=== PATIENT | male | born 1975 | race African-American/Black ===

== ENCOUNTER 2018-02-04 04:27 | Emergency (ER) | payer OTHER ==
[2018-02-04 04:44] VITALS: BP 140/97; PULSE 88; TEMP 98.1; BMI 43.5
--- NOTE | 2018-02-04 04:54 | PDOC ---
Attending Attestation - HPI HPI: 02/04/18 06:24 The patient is a 43 year old male with no significant past medical history who presents to the emergency department for evaluation of bilateral pedal edema. The patient reports a 2 week history of intermittent bilateral pedal edema. Pt reports mild left calf pain. Denies chest pain, shortness of breath, headache, sick contact, and recent illness. Allergies: Penicillins Social History: Current some day smoker. No reported alcohol or drug use. PCP: Dr. Ed Logan ([phone]) <Srinivas Madrigal - Last Filed: 02/04/18 06:44> - Resident Resident Name: Camron Huitron - ED Attending Attestation I have performed the following: I have examined & evaluated the patient, The case was reviewed & discussed with the resident, I agree w/resident's findings & plan - Physicial Exam PE: 02/04/18 20:06 Agree with resident exam. Pt has bilateral swelling of the ankles. No pitting edema noted in the lower legs otherwise, however bilateral lower legs are red and warm. Pt is afebrile. He has no tachycardia and no complaints of leg pain. - Medical Decision Making 02/04/18 20:07 Pt was signed out to the day team. His D dimes is elevated in the hundreds. Labs otherwise normal. He is awaiting sono duplex doppler of the right lower leg to r/o DVT. 02/04/18 20:09 <Jodie Husain - Last Filed: 02/04/18 20:09> Attestations - Attestations Documentation prepared by Srinivas Madrigal, acting as manager medical for Jodie Husain MD. <Srinivas Madrigal - Last Filed: 02/04/18 06:44>
--- NOTE | 2018-02-04 05:04 | PDOC ---
History of Present Illness - General Chief Complaint: Edema Stated Complaint: ANKLE SWELLING Time Seen by Provider: 02/04/18 04:45 History Source: Patient Exam Limitations: No Limitations - History of Present Illness Initial Comments: 02/04/18 05:02 43m with no pmh presents to the ED with bilateral pedal edema for the past 2 weeks, on/off. Minor calf pain on the left leg. No history of heart disease or diabetes. Recent cold for the past week. 02/04/18 05:32 Past History - Past Medical History Allergies/Adverse Reactions: Allergies Allergy/AdvReac Type Severity Reaction Status Date / Time Penicillins Allergy Severe Verified 02/04/18 04:40 Home Medications: Ambulatory Orders NK [No Known Home Medication] 02/04/18 - Suicide/Smoking/Psychosocial Hx Smoking History: Current some day smoker Have you smoked in the past 12 months: No Information on smoking cessation initiated: No Hx Alcohol Use: No Drug/Substance Use Hx: No Review of Systems - Review of Systems Able to Perform ROS?: Yes Is the patient limited Serbian proficient: No Constitutional: No: Symptoms Reported HEENTM: No: Symptoms Reported Respiratory: No: Symptoms reported Cardiac (ROS): No: Symptoms Reported ABD/GI: No: Symptoms Reported : No: Symptoms Reported Musculoskeletal: No: Symptoms Reported Integumentary: No: Symptoms Reported Neurological: No: Symptoms reported All Other Systems: Reviewed and Negative *Physical Exam - Vital Signs Last Vital Signs Temp Pulse Resp BP Pulse Ox 98.1 F 88 18 140/97 98 02/04/18 04:32 02/04/18 04:32 02/04/18 04:32 02/04/18 04:32 02/04/18 04:32 - Physical Exam General Appearance: Yes: Appropriately Dressed, Obese. No: Apparent Distress HEENT: positive: EOMI, [place], Normal ENT Inspection Respiratory/Chest: positive: Lungs Clear, Normal Breath Sounds. negative: Chest Tender, Respiratory Distress Cardiovascular: positive: Regular Rhythm, Regular Rate, S1, S2 Gastrointestinal/Abdominal: positive: Normal Bowel Sounds, Soft, Protuberent. negative: Tender Musculoskeletal: positive: Normal Inspection. negative: CVA Tenderness Extremity: positive: Normal Capillary Refill, Normal Inspection, Normal Range of Motion, Pedal Edema (1+) Integumentary: positive: Normal Color, Dry, Warm Neurologic: positive: Fully Oriented, Alert, Normal Mood/Affect, Normal Response , Motor Strength 12/03 ED Treatment Course - LABORATORY CBC & Chemistry Diagram: 02/04/18 05:40 02/04/18 05:40 Medical Decision Making - Medical Decision Making 02/04/18 05:32 Bedside U/S no sign of heart failure, no DVT's appreciated. basic labs ordered, UA, bnp 02/04/18 05:34 02/04/18 07:09 All labs wnl Pending UA and D-dimer 02/04/18 07:11 Come back to the ER for any new, worsening or concerning symptom. *DC/Admit/Observation/Transfer Diagnosis at time of Disposition: Pedal edema - Referrals Referrals: Ed Logan MD [Primary Care Provider] - - Patient Instructions Printed Discharge Instructions: DI for Peripheral Edema -- Bilateral Additional Instructions: Follow up with your PCP appointment tomargaret Logan. Come back to the ER for any new, worsening or concerning symptom. - Post Discharge Activity
[2018-02-04 05:49] LABS: BASO % 0.8 % (0-2.0); EOS % 3.1 % (0-4.5); HEMATOCRIT 40.9 % (35.4-49); HEMOGLOBIN 13.4 GM/dL (11.7-16.9); LYMPH % 22.1 % (8-40); MCH 24.2 pg (25.7-33.7); MCHC 32.7 g/dl (32.0-35.9); MEAN CELL VOLUME 74.1 fl (80-96); MEAN PLT VOLUME 8.5 fl (7.5-11.1); MONO % 8.6 % (3.8-10.2); NEUT % 65.4 % (42.8-82.8); PLATELET COUNT 238 K/MM3 (134-434); RBC 5.52 M/mm3 (4.00-5.60); RDW 17.1 % (11.9-15.9); WHITE BLOOD COUNT 10.8 K/mm3 (4.0-10.0)
[2018-02-04 06:13] LABS: ALBUMIN 3.4 g/dl (3.4-5.0); ANION GAP 6 (8-16); BILIRUBIN,TOTAL 0.2 mg/dL (0.2-1.0); BLOOD UREA NITROGEN 16 mg/dL (7-18); CALCIUM 8.7 mg/dL (8.5-10.1); CHLORIDE 108 mmol/L (98-107); CO2 28 mmol/L (21-32); GLUCOSE,RANDOM 90 mg/dL (74-106); POTASSIUM 4.1 mmol/L (3.5-5.1); SGOT/AST 29 U/L (15-37); SGPT/ALT 46 U/L (12-78); SODIUM 142 mmol/L (136-145); TOT PROT 7.2 g/dl (6.4-8.2)
[2018-02-04 06:15] LABS: ALK PHOS 79 U/L (45-117); N-TERMINAL BNP < 5.00 pg/ml (5-125)
[2018-02-04 06:47] LABS: URINE APPEARANCE CLEAR; URINE BILIRUBIN NEGATIVE (<2.0 mg/dL); URINE COLOR STRAW; URINE GLUCOSE (UA) NEGATIVE (NEGATIVE); URINE KETONE NEGATIVE (NEGATIVE); URINE LEUK ESTERASE NEGATIVE (NEGATIVE); URINE NITRITE NEGATIVE (NEGATIVE); URINE PROTEIN NEGATIVE (NEGATIVE); URINE UROBILINOGEN NEGATIVE mg/dL (0.2-1.0)
--- NOTE | 2018-02-04 07:11 | PDOC ---
*Physical Exam - Vital Signs Last Vital Signs Temp Pulse Resp BP Pulse Ox 98.1 F 88 18 140/97 98 02/04/18 04:32 02/04/18 04:32 02/04/18 04:32 02/04/18 04:32 02/04/18 04:32 - Physical Exam Vascular Pulses: Dorsalis-Pedis (R): 2+, Doralis-Pedis (L): 2+ Extremity: positive: Normal Capillary Refill, Normal Inspection. negative: Tender, Coldness, Calf Tenderness, Erythema ED Treatment Course - LABORATORY CBC & Chemistry Diagram: 02/04/18 05:40 02/04/18 05:40 - ADDITIONAL ORDERS Additional order review: Laboratory Results 02/04/18 05:40 Sodium 142 Potassium 4.1 Chloride 108 H Carbon Dioxide 28 Anion Gap 6 L BUN 16 Creatinine 1.0 Creat Clearance w eGFR > 60 Random Glucose 90 Calcium 8.7 Total Bilirubin 0.2 AST 29 ALT 46 Alkaline Phosphatase 79 B-Natriuretic Peptide < 5.00 L Total Protein 7.2 Albumin 3.4 02/04/18 05:40 RBC 5.52 MCV 74.1 L MCHC 32.7 RDW 17.1 H MPV 8.5 Neutrophils % 65.4 Lymphocytes % 22.1 Monocytes % 8.6 Eosinophils % 3.1 Basophils % 0.8 Medical Decision Making - Medical Decision Making 02/04/18 07:12 Patient signed out by Dr. Huitron (Resident) and Dr. Husain (Attending) 43 year old male with no reported PMH presents w/2 week h/o B/L pedal edema and R calf pain. Bedside U/S equivocal for DVT. PE shows 2+ B/L DP pulses, non-tender calf 02/04/18 07:25 D-Dimer 765 Will send for Duplex. Patient counseled on POC 02/04/18 08:54 RLE negative for DVT. Patient ambulatory, denies any current pain. Will discharge home with return precautions including shortness of breath, severe pain and instruction to follow up with PMD as scheduled for later today. I discussed the physical exam findings, ancillary test results and final diagnoses with the patient. I answered all of the patient's questions. The patient was satisfied with the care received and felt comfortable with the discharge plan and treatment plan. The patient will return to the Emergency Department with any new, persistent or worsening symptoms. *DC/Admit/Observation/Transfer Diagnosis at time of Disposition: Pedal edema - Discharge Dispostion Disposition: HOME - Referrals Referrals: Ed Logan MD [Primary Care Provider] - - Patient Instructions Printed Discharge Instructions: DI for Peripheral Edema -- Bilateral Additional Instructions: Follow up with your PCP appointment today Dr. Logan. A copy of your ultrasound has been provided to you. Please take this to your doctor's appointment. Come back to the ER for any new, worsening or concerning symptoms including shortness of breath, severe pain. - Post Discharge Activity
== END 2018-02-04 09:04 | disposition home or self-care (01) ==
LOC: JER 04:27
DX: R60.0 Localized edema (principal)
CPT/HCPCS: 36415; 80053; 81003; 83880; 85025; 85379; 93971-TC; 99284-25

== ENCOUNTER 2018-04-06 18:39 | Emergency (ER) | payer OTHER ==
[2018-04-06 18:44] VITALS: BP 146/98; PULSE 83; TEMP 98; BMI 43.5
--- NOTE | 2018-04-06 18:46 | PDOC ---
Rapid Medical Evaluation Time Seen by Provider: 04/06/18 18:40 Medical Evaluation: Allergies Allergy/AdvReac Type Severity Reaction Status Date / Time Penicillins Allergy Severe Verified 02/04/18 04:40 04/06/18 18:40 I have performed a brief in-person evaluation of this patient. The patient presents with a chief complaint of: swollen ankles since this am. Also reports feeling tired denies chest pain or shortness of breath Pertinent physical exam findings are: NAD even and labored breathing bipedal edema I have ordered the following: iv labs, ekg The patient will proceed o the Ed for further evaluation.
--- NOTE | 2018-04-06 19:34 | PDOC ---
History of Present Illness - General Chief Complaint: Edema Stated Complaint: EDEMA Time Seen by Provider: 04/06/18 18:40 - History of Present Illness Initial Comments: 04/06/18 19:31 43 yo M with no significant pmh who p/w with BL LE edema, and fatigue. Patient noticed BL LE swelling, leg tightness, and fatigue this AM, when waking out of bed. Also endorses BL LE numbness, without tingling. Patient recently seen in [facility] ED (02/04/18) for BL pedal edema, with neg RLE DUPLEX U/S. Patient with similar complaints at that time. Swelling gradually improved. Now with similar symptoms of BL LE swelling from ankle to BL feet noticed this AM. Reports that he has been off of work for the past three days, at home. Typically stands and walks through the day at two different jobs. Patient denies N/V, F/C, cough, wheezing, CP,Palpitations, Orthopnea, PND, SOB, urinary complaints, abdominal pain, diarrhea, constipation, lightheadedness, weakness, sensory changes. PMHx: as noted above. Denies h/o ACS/OR. Denies h/o stress testing, stent placement, CABG. Surgical: Denies ROS: as noted SHx: Denies tobacco, IVDA. Social Etoh. No recent travels, hormonal therapy, h/ o malignancy, or h/o PE/DVT, or hypercoaguability. Not on medications, or supplements. Allergies: NKDA Past History - Past Medical History Allergies/Adverse Reactions: Allergies Allergy/AdvReac Type Severity Reaction Status Date / Time Penicillins Allergy Severe Verified 04/06/18 18:41 Home Medications: Ambulatory Orders NK [No Known Home Medication] 02/04/18 COPD: No - Suicide/Smoking/Psychosocial Hx Smoking History: Never smoked Have you smoked in the past 12 months: No Hx Alcohol Use: No Drug/Substance Use Hx: No Review of Systems - Review of Systems Comments:: 04/06/18 19:32 GENERAL/CONSTITUTIONAL: + Fatigue. No fever or chills. No weakness. HEAD, EYES, EARS, NOSE AND THROAT: No change in vision. No ear pain or discharge. No sore throat. CARDIOVASCULAR: No chest pain or shortness of breath RESPIRATORY: No cough, wheezing, or hemoptysis. GASTROINTESTINAL: No nausea, vomiting, diarrhea or constipation. GENITOURINARY: No dysuria, frequency, or change in urination. MUSCULOSKELETAL: + BL LE swelling and numbness. No joint or muscle pain. No neck or back pain. SKIN: No rash NEUROLOGIC: No headache, vertigo, loss of consciousness, or change in strength/ sensation. ENDOCRINE: No increased thirst. No abnormal weight change HEMATOLOGIC/LYMPHATIC: No anemia, easy bleeding, or history of blood clots. ALLERGIC/IMMUNOLOGIC: No hives or skin allergy. *Physical Exam - Vital Signs Last Vital Signs Temp Pulse Resp BP Pulse Ox 98 F 83 18 146/98 97 04/06/18 18:43 04/06/18 18:43 04/06/18 18:43 04/06/18 18:43 04/06/18 18:43 - Physical Exam Comments: 04/06/18 19:32 GENERAL: Awake, alert, and fully oriented, in no acute distress HEAD: No signs of trauma, normocephalic, atraumatic EYES: PERRLA, EOMI, sclera anicteric, conjunctiva clear ENT: Hearing grossly normal, nares patent, oropharynx clear without exudates. Moist mucosa NECK: Normal ROM, supple, no lymphadenopathy, JVD, or masses LUNGS: No distress, speaks full sentences, clear to auscultation bilaterally HEART: Regular rate and rhythm, normal S1 and S2, no murmurs, rubs or gallops, peripheral pulses normal and equal bilaterally. EXTREMITIES :+ BL LE 1 + pitting edema from BL ankle to dorsal foot. Normal inspection, Normal range of motion. No clubbing or cyanosis. Palpable and symmetric DP and PT pulses. NEUROLOGICAL: Cranial nerves II through XII grossly intact. Normal speech, normal gait, no focal sensorimotor deficits SKIN: Warm, Dry, normal turgor, no rashes or lesions noted ED Treatment Course - LABORATORY CBC & Chemistry Diagram: 04/06/18 20:15 04/06/18 20:15 Medical Decision Making - Medical Decision Making 04/06/18 20:01 43 yo M with no significant pmh who p/w with BL LE edema, and fatigue. VSS, AF. 1+ BL pedal and ankle pitting edema. Neurovascularly intact. R/o DVT. Low suspicion CHF. No evidence of fluid overload, or significant cardiac complaints or history. No overlying skin changes to suggest cellulitis, or abscess. No evidence of arterial disease, or compartment syndrome. Likely dependent edema. ED course: CBC,CMP, BNP, TSH EKG, CXR DUPLEX BL VASC 04/06/18 20:52 EKG: NSR with absent NOLBERTO, STD, or TWI. Nml interval duration and axis. CBC: Unremarkable 04/06/18 21:07 BNP: Unremarkable CMP: Unremarkable 04/06/18 22:01 TSH: Neg BL LE DUPLEX: Neg DVT Patient stable for d/c with return precautions. Advised to f/u with vascular. *DC/Admit/Observation/Transfer Diagnosis at time of Disposition: Pedal edema - Discharge Dispostion Condition at time of disposition: Stable Decision to Admit order: No - Referrals Referrals: Marcin Diego MD [Staff Physician] - - Patient Instructions Printed Discharge Instructions: DI for Dependent Edema Additional Instructions: Please return to the emergency department with any new or worsening symptoms or concerns. Please follow up with your primary care physician within 72 hours. Please follow up with vascular surgery within one week. - Post Discharge Activity - Attestations Physician Attestion: 04/06/18 20:09 I attest to the information provided in this note.
[2018-04-06 20:35] LABS: BASO % 1.1 % (0-2.0); EOS % 2.8 % (0-4.5); HEMATOCRIT 42.5 % (35.4-49); HEMOGLOBIN 13.9 GM/dL (11.7-16.9); LYMPH % 23.7 % (8-40); MCH 24.2 pg (25.7-33.7); MCHC 32.6 g/dl (32.0-35.9); MEAN CELL VOLUME 74.3 fl (80-96); MEAN PLT VOLUME 8.4 fl (7.5-11.1); MONO % 7.7 % (3.8-10.2); NEUT % 64.7 % (42.8-82.8); PLATELET COUNT 239 K/MM3 (134-434); RBC 5.72 M/mm3 (4.00-5.60); WHITE BLOOD COUNT 11.1 K/mm3 (4.0-10.0)
[2018-04-06 20:48] LABS: INR 0.94 (0.83-1.09); PROTHROMBIN TIME (PATIENT) 10.6 SEC (9.7-13.0)
[2018-04-06 20:50] LABS: ACTIVATED PTT 31.9 SECONDS (25.2-36.5)
--- NOTE | 2018-04-06 20:52 | PDOC ---
Attending Attestation - Resident Resident Name: New Noguera - ED Attending Attestation I have performed the following: I have examined & evaluated the patient, The case was reviewed & discussed with the resident, I agree w/resident's findings & plan - HPI HPI: 04/06/18 20:49 43-year-old male with no severe past medical history presents with bilateral foot and ankle swelling for the past day. No pain or redness, no fevers or chills, pain. No respiratory symptoms. Had high salt meal at a barbecue this weekend, he attributes the swelling to that. Had similar presentation in January, labs and one like ultrasound Doppler were normal. The symptoms resolved spontaneously after a day or 2. - Physicial Exam PE: 04/06/18 20:49 Vital signs normal Well-appearing, heavyset and muscular gentleman speaking full sentences No JVD Lungs are clear without crackles, heart is regular without murmurs Trace pedal and ankle edema bilaterally without calf tenderness or swelling Neurovascularly intact throughout without evidence of cellulitis - Medical Decision Making 04/06/18 20:50 43-year-old male with likely dependent pedal edema, seems most consistent with some venous insufficiency lower suspicion for hernia pulmonary in etiology. Labs sent Dopplers ordered If above is within normal limits, reassurance and follow up with vascular. Heart Score/ECG Review #1 ECG reviewed & interpreted by me at: 20:41 General ECG Interpretation: Sinus Rhythm, Normal Rate (66), Normal Intervals ( qtc 408), No acute ischemic changes
[2018-04-06 20:56] LABS: ALBUMIN 3.5 g/dl (3.4-5.0); ANION GAP 8 MMOL/L (8-16); BILIRUBIN,TOTAL 0.2 mg/dL (0.2-1.0); BLOOD UREA NITROGEN 16 mg/dL (7-18); CALCIUM 8.6 mg/dL (8.5-10.1); CHLORIDE 106 mmol/L (98-107); CO2 29 mmol/L (21-32); GLUCOSE,RANDOM 89 mg/dL (74-106); POTASSIUM 4.1 mmol/L (3.5-5.1); SGOT/AST 27 U/L (15-37); SGPT/ALT 47 U/L (12-78); SODIUM 143 mmol/L (136-145); TOT PROT 7.5 g/dl (6.4-8.2)
[2018-04-06 20:58] LABS: ALK PHOS 86 U/L (45-117); N-TERMINAL BNP 33.05 pg/ml (5-125)
--- NOTE | 2018-04-07 09:10 | EKG ---
Test Reason : Blood Pressure : / mmHG Vent. Rate : 066 BPM Atrial Rate : 066 BPM P-R Int : 154 ms QRS Dur : 088 ms QT Int : 390 ms P-R-T Axes : 036 027 018 degrees QTc Int : 408 ms NORMAL SINUS RHYTHM NORMAL ECG NO PREVIOUS ECGS AVAILABLE Confirmed by CAROLINA STAHL MD ([id number]) on 04/07/2018 9:10:20 AM Referred By: Confirmed By:CAROLINA STAHL MD
== END 2018-04-06 22:41 | disposition home or self-care (01) ==
LOC: JER 18:39
DX: M79.89 Other specified soft tissue disorders (principal)
CPT/HCPCS: 36415; 80053; 83880; 84443; 85025; 85610; 85730; 93005; 93010; 93970-TC; 99283-25